=== PATIENT | female | born 1965 | race Caucasian/White ===

== ENCOUNTER 2024-11-15 06:40 | Emergency (ER) | payer OTHER ==
[2024-11-15 06:55] VITALS: PULSE 60; RESP 16; BMI 21.9
[2024-11-15] MEDS ORDERED: ONDANSETRON *ODT* 4 MG TABLET ONE (06:56)
[2024-11-15] MEDS ORDERED: ONDANSETRON *ODT* 4 MG TABLET SL ONE (07:00)
[2024-11-15] MEDS: ONDANSETRON 4 MG TABLET PO ONE (07:05)
[2024-11-15] MEDS: ONDANSETRON *ODT* 4 MG TABLET SL ONE (07:08)
[2024-11-15] MEDS ORDERED: ONDANSETRON 4 MG/2 ML VIAL ONE (08:41)
[2024-11-15 09:15] LABS: ABSOLUTE IMMATURE GRANULOCYTES 0.01 x10^3/uL (0.0-0.031); BASOPHILS # 0.04 x10^3/uL (0.01-0.08); EOSINOPHIL % 0.3 % (0.7-5.8); EOSINOPHILS # 0.02 x10^3/uL (0.04-0.36); MCHC 32.5 g/dl (32.2-35.5); MEAN CELL VOLUME 94.1 fl (79.4-94.8); MEAN PLT VOLUME 12.1 fl (9.4-12.3); MONOCYTE # 0.60 x10^3/uL (0.24-0.86); MONOCYTE % 8.3 % (4.7-12.5); RDW 12.4 % (12.4-16.4)
[2024-11-15] MEDS: ONDANSETRON 4 MG/2 ML VIAL IVPUSH ONE (09:15)
[2024-11-15 09:18] LABS: ALK PHOS 58.0 U/L (45-117); CO2 29.0 mmol/L (21-32); CREATININE 0.7 mg/dl (0.6-1.3); GLUCOSE,RANDOM 125.0 mg/dl (74-106); SGOT/AST 31.0 U/L (15-37); SGPT/ALT 30.0 U/L (7-52); TOT PROT 7.6 g/dl (6.4-8.2)
[2024-11-15 09:27] VITALS: BP 150/68
[2024-11-15] MEDS: SODIUM CHLORIDE 0.9% 1000 ML INFUS.BAG IV ONE (09:41)
[2024-11-15 16:22] LABS: HCV DIAGNOSTIC IN-HOUSE W/RFLX NON-REACTIVE (NONREACTIVE)
[2024-11-15 20:43] LABS: HIV INTERPRETATION NEGATIVE (NEGATIVE)
== END 2024-11-15 09:38 | disposition home or self-care (01) ==
LOC: FER 06:40
PROC: 3E033GC Introduction of Other Therapeutic Substance into Peripheral Vein, Percutaneous Approach (ICD-10-PCS; principal; 2024-11-15)
DX: I10 Essential (primary) hypertension (principal); R11.0 Nausea; R42 Dizziness and giddiness
CPT/HCPCS: 36415; 71046-TC-FY; 80053; 84484; 85025; 86803; 87389; 93005; 99285-25; Q0162